=== PATIENT | male | born 1955 | race Caucasian/White ===

== ENCOUNTER → 2017-01-12 | Outpatient (CLI) | payer OTHER ==
[2017-01-12 08:06] LABS: Blood Urea Nitrogen 14 mg/dL (9-20); Non-African American GFR(MDRD) >60 (>60 ml/min/1.73 sqM)
--- NOTE | 2017-01-12 11:42 | MR ---
EXAMINATION TYPE: MR lumbar spine wo/w con DATE OF EXAM: 01/12/2017 9:21 AM COMPARISON: None HISTORY: radiculopathy, rt hip pain, weakness in calfs TECHNIQUE: Multiplanar, multisequence images of the lumbar spine were acquired utilizing 20 mL intravenous Multi Tacho gadolinium contrast. Diffusion weighted imaging was performed. L1-L2: Normal disc appearance without desiccation. No herniation, protrusion or disc bulging. No ca nal stenosis is present. Foramina are patent bilaterally. L2-L3: Normal disc appearance without desiccation. No herniation, protrusion or disc bulging. No ca nal stenosis is present. Mild endplate spondylosis, discogenic marrow signal change Foramina are pat ent bilaterally. L3-L4: Normal disc appearance without desiccation. No herniation, protrusion or disc bulging. No ca nal stenosis is present. Mild endplate spondylosis. Foramina are patent bilaterally. L4-L5: Small central posterior disc bulge causes mild anterior mass effect on the thecal sac. Increas ed signal at the posterior aspect of the disc may be due to annular tear. Lateral recess encroachment due to facet arthropathy and hypertrophy of the ligamentum flavum. No significant foraminal encroach ment or central canal stenosis. Loss of disc signal compatible with disc desiccation. L5-S1: Loss of disc height and signal compatible with disc desiccation and degenerative disc disease. Posterior disc bulge is eccentric towards the right causing anterolateral mass effect on the S1 nerv e root. No significant central canal stenosis. Circumferential extension of endplate disc complex enc roaches somewhat on the right neural foramen. Lumbar segments are intact. No paraspinal masses are identified. Conus medullaris has a normal appe arance. Small cortical cyst left renal cortex. IMPRESSION: Mild degenerative disc disease, disc herniations L4-5 and L5-S1 as described, correlate for right S1 radiculopathy.
== END | disposition home or self-care (01) ==
LOC: RADMRIMAIN 07:35
PROVIDERS: ATTEND Family Medicine
DX: M51.16 Intervertebral disc disorders with radiculopathy, lumbar region (principal); M51.17 Intervertebral disc disorders with radiculopathy, lumbosacral region
CPT/HCPCS: 82565; 84520; 72158; A9577

== ENCOUNTER 2017-02-13 11:23 | Day surgery (SDC) | payer OTHER ==
[2017-02-11 14:42] VITALS: BMI 27.7
[~2017-02-13 11:23] MED LIST: DEXAMETHASONE SOD PHOSPHATE 10 MG/ML 1 ML VIAL IV ONE; HYDROmorphone 1 MG/ML 1 ML SYRINGE IVP PRN; LACTATED RINGERS 1,000 ML IV SCH; MIDAZOLAM 2 MG/2 ML VIAL IV PRN; ONDANSETRON 4 MG/2 ML VIAL IVP ONE; Pre Op ABX Message 1 EACH MISC MISCELLANE ONE; SCOPOLAMINE 1.5MG/72HR PATCH TRANSDERM ONE
[2017-02-13] MEDS ORDERED: LIDOCAINE 1% 20 ML VIAL (10MG/ML) FOR IV START INTRADERMA ONE (11:47)
[2017-02-13 11:48] LABS: Glucose,Whole Blood 253 mg/dL (75-99)
[2017-02-13] MEDS ORDERED: INSULIN LISPRO (humaLOG) 300 UNIT/3 ML VIAL SQ ONE (11:55)
[2017-02-13] MEDS ORDERED: fentaNYL (PF) 50 MCG/ML 2 ML AMP ONE (12:31)
[2017-02-13] MEDS ORDERED: PHENYLEPHRINE-0.9% NACL SYG 1 MG/10 ML SYRINGE ONE (12:31)
[2017-02-13] MEDS ORDERED: PROPOFOL 10 MG/ML 20 ML VIAL IV ONE (12:31)
[2017-02-13] MEDS ORDERED: MIDAZOLAM 2 MG/2 ML VIAL ONE (12:31)
[2017-02-13] MEDS ORDERED: LIDOCAINE 1% INJ 10MG/ML (20 ML MDV) ONE (12:31)
[2017-02-13] MEDS ORDERED: SUCCINYLCHOLINE CHLORIDE 100 MG/5 ML SYR IV ONE (12:31)
[2017-02-13] MEDS ORDERED: IOHEXOL 350 MG/ML 50ML BOTTLE IRRIGATION ONE ×2 (12:50)
--- NOTE | 2017-02-13 13:09 | P.OP ---
Date of Procedure: 02/13/17 Preoperative Diagnosis: History of bladder cancer, bladder erythema Postoperative Diagnosis: Same Procedure(s) Performed: Cystoscopy, bilateral retrograde pyelograms, bladder biopsy and fulguration Anesthesia: MARY ALICE Surgeon: Rakesh Johnson Pathology: other (Bladder biopsy) Condition: stable Disposition: PACU Indications for Procedure: The patient is a 61-year-old gentleman who was moved from [place] who had a history of a superficial bladder cancer resected in treated with mitomycin postoperatively. He had a follow-up cystoscopy in my office identifying 2 areas of erythema with edema on the left posterior bladder wall he comes for biopsy and retrograde pyelogram Description of Procedure: The patient is brought to the operating suite and placed on the operating table in a supine position. He's placed lithotomy position with sterile prep and drape. Cystoscopy with a Foroblique lens and 22-Burmese sheath identifies a normal anterior urethra. The prostatic urethra was not obstructing. Upon entering the bladder the ureteral orifices are normal. The rest the bladder wall shows 2 areas of erythema one on the left lateral wall and one just lateral to the left trigone. With a cone-tip catheters bilateral retrograde pyelograms were performed and the ureters of normal course and caliber. There is no filling defects noted in the ureter. There is no abnormalities noted in the calyces nor the kidney. With a cold cup biopsy forceps the 2 areas of erythema and edema or biopsy. With the 8-Burmese Bugbee electrode I cauterize thoroughly the biopsy sites and the surrounding areas. At the end of the procedure the bladder strain the patient's awake and returned recovery room good condition. He'll be discharged home upon recovery and followed office 1 week for biopsy report.
[2017-02-13 13:16] VITALS: TEMP 97.4
--- NOTE | 2017-02-13 13:22 | FL ---
Fluoroscopy HISTORY: Bilateral retrograde cystogram 1 minute 11 seconds fluoroscopy time supplied to the referring clinician. 0 intraoperative C-arm annita ges document the procedure. See dictated report from urology.
[2017-02-13 13:23] LABS: Glucose,Whole Blood 196 mg/dL (75-99)
[2017-02-13 13:32] VITALS: RESP 16
[2017-02-13 14:11] VITALS: PULSE 80
[2017-02-13 14:38] VITALS: BP 142/76
== END 2017-02-13 15:06 | disposition home or self-care (01) ==
LOC: OR 11:23
PROVIDERS: ATTEND Urology
DX: Z85.51 Personal history of malignant neoplasm of bladder (principal); I25.10 Atherosclerotic heart disease of native coronary artery without angina pectoris; I10 Essential (primary) hypertension; E11.9 Type 2 diabetes mellitus without complications; Z79.4 Long term (current) use of insulin; Z79.84 Long term (current) use of oral hypoglycemic drugs; F32.9 Major depressive disorder, single episode, unspecified; F41.9 Anxiety disorder, unspecified; Z95.1 Presence of aortocoronary bypass graft; Z79.02 Long term (current) use of antithrombotics/antiplatelets; Z79.82 Long term (current) use of aspirin; Z79.1 Long term (current) use of non-steroidal anti-inflammatories (NSAID); Z79.899 Other long term (current) drug therapy
CPT/HCPCS: 88305; 88342; 88341; 74420; 52204; C1758; J2250; J1100; J2405; J2001; J3010; J2370; J0330; J2704; Q9967

== ENCOUNTER → 2018-01-06 | Outpatient (CLI) | payer OTHER ==
--- NOTE | 2018-01-06 18:36 | CTL ---
EXAMINATION TYPE: CT Low Dose Lung DATE OF EXAM ORDERED: 01/06/2018 HISTORY: 62-year-old male personal history of nicotine dependence. Lung cancer screening CT DLP: 86.[address] CTDI: 2.60 mGy Automated exposure control for dose reduction was used. SCREENING VISIT: Baseline COMPARISON: None TECHNIQUE: Low dose computed tomography scan was performed through the chest at 1 mm thick sections a nd reconstructed images in the coronal plane at 1 mm thick sections. Coronal and sagittal reconstruct ions performed. Coronal MIP reconstructions generated. CT DIAGNOSTIC QUALITY: Limited, but interpretable FINDINGS: Median sternotomy wires are present with post-CABG changes. Heart normal size without pericardial effusion. Aorta normal caliber with bovine configuration to the aortic arch and additional variant direct takeo ff of the left vertebral artery directly from the aortic arch. Moderate arch calcifications are prese nt. Nonenlarged mediastinal lymph nodes. No thoracic lymphadenopathy by CT size criteria. Mild to moderate diffuse bronchial wall thickening is noted with focal bands of density at both lung bases suggesting areas of cicatricial atelectasis. There is a small patch of groundglass the superior segment left lower lobe, axial image 109 of series 5 that could represent a nonspecific infectious/i nflammatory focus. No suspicious pulmonary nodule or mass is seen. No pleural effusion. Visualized upper abdomen suggests some layering sludge or gravel in the gallbladder. Bones: No osseous destructive process. IMPRESSION: 1. Lung RADS 1 - negative; no suspicious pulmonary nodules identified. 2. Mild to moderate bronchial wall thickening suggests bronchitis or chronic asthma. 3. Prominent bands of opacity in both lower lungs could represent areas of cicatricial atelectasis re lated to prior bouts of infection or aspiration. 4. Small patch of ground glass within the superior segment left lower lobe suggests a nonspecific inf ectious/inflammatory focus. Correlate with patient's symptoms. RECOMMENDATION: 1. Continue annual screening with low-dose CT chest. 2. Smoking cessation. FOLLOW UP CT CHEST RECOMMENDATION: [address] LUNG RAD: Lung-Rad 1 Negative
== END | disposition home or self-care (01) ==
LOC: RADCTMAIN 15:37
PROVIDERS: ATTEND Family Medicine
DX: Z12.2 Encounter for screening for malignant neoplasm of respiratory organs (principal); F17.200 Nicotine dependence, unspecified, uncomplicated; J98.09 Other diseases of bronchus, not elsewhere classified; R91.8 Other nonspecific abnormal finding of lung field